=== PATIENT | female | born 1985 | race Caucasian/White ===

== ENCOUNTER → 2020-04-18 17:30 | Outpatient (CLI) | payer OTHER ==
[2020-02-07 13:53] VITALS: BMI 36.3
[~2020-04-18 17:30] MED LIST: CLARITIN 10 MG10 MG; CLARITIN 10 MG10 MG PO; KEPPRA500 MG; KEPPRA500 MG PO; LISINOPRIL20 MG; LISINOPRIL20 MG PO; OMEPRAZOLE20 M1; OMEPRAZOLE20 M1 PO; PROZAC40 MG; PROZAC40 MG PO
== END | disposition home or self-care (01) ==
LOC: D.MAMMO 16:00
PROVIDERS: ATTEND Family Medicine
DX: Z12.31 Encounter for screening mammogram for malignant neoplasm of breast (principal)

== ENCOUNTER → 2020-05-06 14:59 | Outpatient (CLI) | payer OTHER ==
[2020-02-07 13:53] VITALS: BMI 36.3
== END | disposition home or self-care (01) ==
LOC: D.US 14:59
PROVIDERS: ATTEND Family Medicine
DX: R92.8 Other abnormal and inconclusive findings on diagnostic imaging of breast (principal)